=== PATIENT | male | born 1990 | race African-American/Black ===

== ENCOUNTER 2022-09-13 10:45 | Outpatient (CLI) | payer BC, SELFPAY | END 2022-09-13 10:46 | disposition home or self-care (01) | LOC: LKVREF 10:46 | PROVIDERS: PCP Physician Assistant Medical; Visit Provider Physician Assistant Medical | DX: Z00.00 Encounter for general adult medical examination without abnormal findings (principal); I10 Essential (primary) hypertension; Z13.6 Encounter for screening for cardiovascular disorders | CPT/HCPCS: 80053; 80061 ==

== ENCOUNTER 2023-12-05 10:52 | Outpatient (CLI) | payer BC, SELFPAY | END 2023-12-05 10:53 | disposition home or self-care (01) | PROVIDERS: PCP Physician Assistant Medical; Visit Provider Physician Assistant Medical | DX: B35.1 Tinea unguium (principal); Z13.220 Encounter for screening for lipoid disorders; Z13.1 Encounter for screening for diabetes mellitus | CPT/HCPCS: 80061; 80076; 82947 ==